=== PATIENT | male | born 1985 | race African-American/Black ===

== ENCOUNTER → 2020-10-12 | Outpatient (CLI) | payer OTHER ==
[~2020-10-12] MED LIST: ISOVUE-300 61% 50ML VIAL As Ordered ONE; LIDOCAINE 1% MDV 20ML VIAL As Ordered ONE; TRIAMCINOLONE ACETONIDE SUSP 40 MG/ML VIAL (J3301) As Ordered ONE
--- NOTE | 2020-10-12 12:58 | REP ---
INDICATION: PAIN IN LEFT HIP. COMPARISON: None TECHNIQUE: The procedure was performed by ESTEBAN Jesus, under the direct supervision of Dr. Castillo. The benefits and risks of the procedure were explained to the patient, and an informed consent was obtained. Directly prior to the start of the procedure, a formal time-out was completed in the procedure room. The left femoral neck joint space was localized using fluoroscopic guidance. The skin was prepped and draped in a sterile fashion. Approximately 5 mL of 1% Lidocaine 10 mg/ml was used as a local anesthetic. Using fluoroscopic guidance, a #22 gauge spinal needle was inserted and advanced into the left femoral neck joint space. Approximately 1 mL of Isovue 300 was injected to verify placement. Ten mL of a solution containing 9 mL 1% lidocaine 10 mg/ml and 1 mL Kenalog 40 milligrams/milliliter was injected into the joint space. The needle was removed and hemostasis was achieved. 0.1 minutes of fluoroscopy time was utilized for this procedure. Some fluoroscopic images are performed with last image hold technology. These images require no additional radiation. FINDINGS: The patient tolerated the procedure well and there were no immediate complications. IMPRESSION: 1. Left hip pain injection under fluoroscopic guidance. <Electronically signed by Snaia Whitlock > 10/12/20 [id number] <Electronically signed by Jesse Castillo > 10/12/20 [id number]
== END ==
LOC: M RADPRO 09:36
PROVIDERS: ATTEND Physician Assistant Surgical
DX: M25.552 Pain in left hip (principal)
CPT/HCPCS: 20610; 77002; J3301; Q9967

== ENCOUNTER → 2021-08-13 | Outpatient (REF) ==
--- NOTE | 2021-08-13 10:44 | REP ---
INDICATION: SOB COMPARISON: None. TECHNIQUE: PA and lateral. FINDINGS: The mediastinum and cardiac silhouette are normal. The lung qureshi are clear and without acute consolidation, effusion, or pneumothorax. The skeletal structures are intact and normal. IMPRESSION: No acute cardiopulmonary process. <Electronically signed by Nguyễn Srivastava > 08/13/21 1047
--- NOTE | 2021-08-13 10:45 | REP ---
INDICATION: PAIN COMPARISON: None. TECHNIQUE: AP, lateral, bilateral oblique views left hand. FINDINGS: The osseous structures and joint spaces are intact and normal. There is no evidence for acute fracture or dislocation. Surrounding soft tissues are unremarkable. No subcutaneous emphysema or radiodense foreign body. No overt arthritic degenerative changes are appreciated. IMPRESSION: Age-appropriate left hand radiographs. <Electronically signed by Nguyễn Srivastava > 08/13/21 1043
--- NOTE | 2021-08-13 10:46 | REP ---
INDICATION: PAIN COMPARISON: None. TECHNIQUE: AP, lateral, bilateral oblique views left wrist. FINDINGS: The carpal bones, surrounding osseous structures, soft tissues, and joint spaces are normal. There is no evidence for acute fracture or dislocation. No subcutaneous emphysema or radiodense foreign body. No significant degenerative changes are appreciated although mild increased sclerosis along the radial surface is identified and nonspecific. IMPRESSION: Essentially normal age-appropriate examination.. <Electronically signed by Nguyễn Srivastava > 08/13/21 [id number]
== END ==
LOC: M PLAIMG 09:29
PROVIDERS: ATTEND Internal Medicine
DX: R06.02 Shortness of breath (principal); M79.642 Pain in left hand; M25.532 Pain in left wrist